=== PATIENT | female | born 1970 | race Caucasian/White ===

== ENCOUNTER 2016-10-24 06:50 | Day surgery (SDC) | payer OTHER ==
[2016-10-24] MEDS ORDERED: NS 1,000 ML IV ONE (06:57)
[2016-10-24] MEDS ORDERED: ASPIRIN EC 325 MG TAB PO ONE (06:57)
[2016-10-24] MEDS ORDERED: diphenhydrAMINE 25 MG CAP PO ONE (06:57)
[2016-10-24] MEDS ORDERED: DIAZEPAM 5 MG TAB PO ONE (06:57)
[2016-10-24] MEDS ORDERED: FAMOTIDINE 20 MG TAB PO ONE (06:57)
--- NOTE | 2016-10-24 07:16 | CPEKG ---
Heart Rate: 99 RR Interval: 606 P-R Interval: 172 QRSD Interval: 90 QT Interval: 356 QTC Interval: 457 P [place]: 38 QRS [place]: -44 T Wave [place]: 4 EKG Severity - BORDERLINE ECG - EKG Impression: SINUS RHYTHM EKG Impression: LEFT AXIS DEVIATION EKG Impression: BORDERLINE R WAVE PROGRESSION, ANTERIOR LEADS Electronically Signed By: Edwin Copeland 24-Oct-2016 07:36:57
[2016-10-24 07:31] LABS: % IMMATURE GRANULYOCYTES 0.1 % (0.0-1.1); ABSOLUTE IMMATURE GRANULOCYTES 0.01 10^3/uL (0.00-0.10); ADD DIFF? NO; ADD MORPH? NO; ADD SCAN? NO; ATYPICAL LYMPHOCYTE FLAG 0 (0-99); FRAGMENT RBC FLAG 0 (0-99); HEMATOCRIT 44.1 % (38.0-47.0); HEMOGLOBIN 15.4 g/dL (12.6-16.3); LEFT SHIFT FLG 0 (0-99); LIPEMIA HEMOLYSIS FLAG 90 (0-99); MEAN CELL HEMOGLOBIN CONCENTR. 34.9 g/dL (32.4-36.7); MEAN CELL VOLUME 88.9 fL (81.5-99.8); MEAN PLATELET VOLUME 10.9 fL (8.7-11.7); PLATELET CLUMPS FLAG 0 (0-99); PLATELET COUNT 176 10^3/uL (150-400); RED BLOOD CELL COUNT 4.96 10^6/uL (4.18-5.33)
[2016-10-24 07:40] LABS: INR 0.96 (0.83-1.16); PROTIME(PATIENT) 12.7 SEC (12.0-15.0)
[2016-10-24 07:58] LABS: ANION GAP 12 mEq/L (8-16); CALCIUM 9.3 mg/dL (8.5-10.4); CARBON DIOXIDE 21 mEq/l (22-31); CHLORIDE 106 mEq/L (97-110); CHOLESTEROL 163 mg/dL (140-200); CHOLESTEROL/HDL RATIO 4.08 RATIO (1.00-4.44); CREATININE 0.6 mg/dL (0.6-1.0); GLOMERULAR FILTRATION RATE > 60; GLUCOSE 182 mg/dL (70-100); HIGH DENSITY LIPOPROTEIN 40 mg/dL (40-95); LDL/HDL RATIO 1.95 RATIO (1.00-3.22); LOW DENSITY LIPOPROTEIN 78 mg/dL (70-100); MAGNESIUM 2.1 mg/dL (1.6-2.3); NON-HIGH DENSITY LIPOPROTEIN 123 mg/dL (90-129); POTASSIUM 4.4 mEq/L (3.5-5.2); SODIUM 139 mEq/L (134-144); TRIGLYCERIDE 229 mg/dL (35-135); VERY LOW DENSITY LIPOPROTEINS 45 mg/dL (8-25)
[2016-10-24] MEDS ORDERED: fentaNYL 100 MCG/2 ML INJ ONE (08:55)
[2016-10-24] MEDS ORDERED: LIDOCAINE 1% 30 ML SDV ONE (08:55)
[2016-10-24] MEDS ORDERED: IOPAMIDOL (ISOVUE-370) 150 ML BTL IV ONE (08:56)
[2016-10-24] MEDS ORDERED: HEPARIN 10,000 UNIT/10 ML MDV ONE (08:56)
[2016-10-24] MEDS ORDERED: MIDAZOLAM 2 MG/2 ML VIAL ONE (08:56)
[2016-10-24] MEDS ORDERED: VERAPAMIL 5 MG/2 ML VIAL ONE (08:56)
--- NOTE | 2016-10-24 11:04 | SUROPNOTE ---
[facility] Operative Report - Surgery Date of Procedure: 10/24/16 Indication: This patient is a 46 year old woman, with a history of type II diabetes and hyperlipidemia, presenting in the setting of abnormal stress testing. The patient reports atypical left-sided chest discomfort which is non- radiating and not related to exertion, class II symptoms. In the setting of this atypical chest discomfort, the patient had a baseline EKG, which was abnormal demonstrating inferior Q waves and poor R wave progression. This precipitated a treadmill stress test, during which she demonstrated 2mm horizontal ST depression and diffuse T wave inversion at peak stress. She also demonstrated frequent PVCs, couplets, and several runs of nonsustained ventricular tachycardia which increased in frequency with stress. Subsequent myocardial perfusion imaging was normal. Left heart catheterization indicated secondary to class II angina and intermediate risk non-invasive testing. Procedures performed: 1. Left heart catheterization with left ventricular and selective coronary angiography. Description of procedure: Description, risks, benefits and alternatives were discussed in detail. Informed consent was obtained. The patient was brought to the catheterization laboratory where a timeout was performed. The right wrist was sterilely prepped and draped. 2% lidocaine utilized for local anesthetic. A 5/6-Kisw[place]ili slender hemostatic sheath placed right radial artery utilizing micropuncture technique. Intraarterial verapamil and intravenous heparin was administered. Diagnostic coronary angiography performed with 6-Kisw[place]ili, Snehal left-3.5 and Snehal right -4 catheter. All catheters were passed over a 0.035 guidewire. Pigtail catheter was then utilized for left heart catheterization and left ventricular angiography. Arterial sheath was removed and TR band was placed. Findings: 1. Hemodynamics: Aortic pressure 128/83, mean of 91, left ventricular pressure 127/15/19 end-diastolic. There was no significant pull back gradient across the aortic valve. 2. Left ventricle: The left ventricle appears normal in size. Left ventricle is normal shape. There is mild global hypokinesis with a mildly reduced ejection fraction of 50%. There are no filling defects or significant mitral regurgitation. The aortic root and ascending aorta appears normal, there is no dissection or aneurysm formation. 3. Coronary angiography: Left main: The left main is a moderately large, moderate length bifurcating vessel, free of disease. 4. Left anterior descending: This is a moderately large vessel continuing around the apex with a moderate bifurcating mid diagonal branch. Free of disease. 5. Circumflex: The circumflex is large and dominant. It gives rise to a moderately large first om, moderate second obtuse marginal branch, large posterolateral, and moderate posterior descending. The circumflex and its branches appear free of disease. 6. Right coronary: Moderate size non-dominant vessel, which gives rise to two right ventricular branches; the first is large and second is moderate in size. Free of disease. Overall Impression: 1. Free of coronary artery disease. 2. Mildly reduced left ventricular systolic function and mild global left ventricular hypokinesis, with an ejection fraction of 50%. Plan: 1. Despite being free of coronary artery disease by angiography today, I would recommend aggressive risk modification and statin therapy considering the patient's risk factors and diabetes. 2. Outpatient echocardiogram 3. BNP 4. Follow up with Dr. Ann. Portions of this report were documented by a biomedical electronics technician. I have reviewed this report and agree with the documentation. Report scribed for Dr. Farrukh Paul. Report scribed by Marilyn De Luna.
[2016-10-24] MEDS ORDERED: ONDANSETRON 4 MG/2 ML VIAL IVP PRN (11:45)
[2016-10-24] MEDS ORDERED: HYDROCODONE/APAP 5/325 TAB PO PRN (11:45)
[2016-10-24] MEDS ORDERED: ATROPINE SULFATE 1 MG/10 ML SYR IVP PRN (11:45)
== END 2016-10-24 15:00 | disposition home or self-care (01) ==
LOC: FCATH 06:50
PROVIDERS: ATTEND Internal Medicine Interventional Cardiology
PROC: B2111ZZ Fluoroscopy of Multiple Coronary Arteries using Low Osmolar Contrast (ICD-10-PCS; principal; 2016-10-24)
PROC: B2151ZZ Fluoroscopy of Left Heart using Low Osmolar Contrast (ICD-10-PCS; principal; 2016-10-24)
PROC: 4A023N7 Measurement of Cardiac Sampling and Pressure, Left Heart, Percutaneous Approach (ICD-10-PCS; principal; 2016-10-24)
DX: R07.89 Other chest pain (principal); E78.2 Mixed hyperlipidemia; E11.9 Type 2 diabetes mellitus without complications
CPT/HCPCS: J1644; J2250; J3010; Q9967